=== PATIENT | male | born 1995 | race African-American/Black ===

== ENCOUNTER 2023-09-28 06:03 | Emergency (ER) | payer OTHER, SELFPAY ==
[2023-09-28] VITALS (8 sets, daily range): BP systolic 120–135; BP diastolic 67–77; PULSE 70–80; RESP 15–19; TEMP 36.5; O2SAT 96–98
--- NOTE | ~2023-09-28 | XR_ITS ---
Clinical Indication: Chest pain PA and lateral views of the chest: Comparison: None Findings: The lungs are clear, without evidence of focal consolidation or pleural effusion. Cardiome diastinal silhouette is within normal limits. Bones and soft tissues are unremarkable. Impression: Normal chest. Reviewed, dictated and finalized at location . [employer] Impression: Normal chest.
[2023-09-28 06:41] LABS: Basophils Percent Auto 0.4 % (0.2-1.2); Eosinophils Absolute Auto 0.1 K/mm3 (0-0.3); Eosinophils Percent Auto 1.5 % (0-4.4); Hemoglobin 7.9 g/dL (14.0-18.0); Immature Granulocyte Absolute 0.43 K/mm3 (0.00-0.031); Immature Granulocyte Percent A 4.5 % (0-0.5); Lymphocytes Absolute Auto 4.16 K/mm3 (0.9-3.2); Lymphocytes Percent Auto 43.8 % (18.3-44.2); Mean Corpuscular HGB Conc 35.9 g/dl (32-36); Mean Corpuscular Hemoglobin 41.4 pg (26-34); Mean Corpuscular Volume 115.2 fl (80-100); Monocytes Absolute Auto 0.7 K/mm3 (0.1-0.6); Monocytes Percent Auto 7.6 % (2.6-8.5); Neutrophils Percent Auto 42.2 % (45.5-73.1); Nucleated Red Blood Cells Absolute Auto 1.6 K/mm3 (0.0-0.012); Nucleated Red Blood Cells Perc 17.3 % (0.0-0.2); Platelet Count Result 658 k/mm3 (150-375); Red Blood Count 1.91 M/mm3 (4.6-6.20); Red Cell Distribution Width 19.6 % (11.5-14.5); White Blood Count 9.5 K/mm3 (4.5-10.0)
[2023-09-28 06:55] LABS: Alanine Aminotransferase 32 U/L (6-50); Albumin Level 3.8 g/dL (3.5-5.1); Alkaline Phosphatase 86 U/L (38-126); Anion Gap 6 mmol/L (8-16); Aspartate Amino Transferase 55 U/L (17-59); Bilirubin,Total 5.7 mg/dL (0.2-1.3); Blood Urea Nitrogen 5 mg/dL (9-20); Carbon Dioxide 22 mmol/L (22-30); Chloride 104 mmol/L (98-107); Estimated CRCL calculation 129 ml/min; Estimated Glomerular Filt Rate > 60; Glucose 115 mg/dL (65-110); Potassium 3.6 mmol/L (3.4-5.0); Sodium 132 mmol/L (137-145)
--- NOTE | 2023-09-28 06:58 | ED.GENADULT ---
HPI - General Adult General Chief complaint: Unspecified Stated complaint: sickle cell crisis Time Seen by Provider: 09/28/23 06:54 History of Present Illness HPI narrative: Patient is a 27-year-old male with history of sickle cell disease here with chest pain, concerning for sickle cell crisis. He states that last night around 10-11 PM his pain significantly worsened. It is located on his left chest wall and is nonradiating. He states that it feels very similar to prior episodes of pain crises. He states that his pain crises typically occur in his chest, he has been monitored for acute chest syndrome in the past however never had it. He denies any cough, congestion, fever, chills. No known sick contacts. He follows at [facility] with their hematology program and is on hydroxyurea. He typically is able to avoid presenting to the hospital and has never been admitted to the hospital for pain crises in the past. He typically takes ibuprofen at home and oxycodone for breakthrough pain. He is scheduled for a hematology appointment this upcoming Tuesday however ran out of his pain medication recently while he was waiting for his upcoming appointment. He tends to get some constant mild pain each day but has what he describes as a pain crises with seasonal changes about every 6 months. No additional focal pain aside from his chest. Related Data Allergies Allergy/AdvReac Type Severity Reaction Status Date / Time No Known Allergies Allergy Verified 09/28/23 07:41 Review of Systems Review of Systems: All systems reviewed & are unremarkable except as noted in HPI and below Exam Narrative: GENERAL: Well-appearing, well-nourished, and in no acute distress. HEAD: Normocephalic, atraumatic. EYES: PERRLA and EOMI. ENT: Nares clear. Mucous membranes moist. NECK: Supple. CHEST: Clear to auscultation. No respiratory distress. HEART: Regular rate and rhythm. Normal peripheral pulses. ABDOMEN: Soft, nontender, nondistended. EXTREMITIES: Normal range of motion. No edema. SKIN: Warm, dry, no rash. NEURO: No focal deficits. Alert and oriented x3. PSYCH: Normal mood and affect. Course Course Emergency Course: Chart review performed. Patient reportedly here with sickle cell crisis, reportedly ran out of his home pain medication. Triage vitals normal. No prior visits in our system. Patient seen evaluated, nontoxic appearing. He appears to be in some pain on evaluation, consistent with sickle cell crisis. Will do chest x-ray to evaluate for any evidence of pneumonia however acute chest is lower on my differential given the fact that he typically has chest pain with his sickle cell crises and has no infectious symptoms. Will do reticulocyte count in addition to lab work drawn in triage, CXR, EKG and troponin added as well. Less likely ACS. Lab work and imaging reviewed, hemoglobin 7.9, consistent with known sickle cell disease, appropriate reticulocyte count elevation at 0.27. Do not believe I have concern for aplastic crisis at this time. No leukocytosis. Electrolytes grossly within normal limits, total bilirubin elevated, this is also consistent with history of sickle cell disease. Troponin negative. Chest x-ray normal. Patient re-evaluated, feeling much better. 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 He would prefer to do a trial of going home. Will send an short-term prescription for oxycodone for his teradata developer to renew next week. Advised close follow-up with his teradata developer as well as strict return precautions if his symptoms worsen. The results of pertinent diagnostic studies and exam findings were discussed. The patient?s provisional diagnosis and plan of care were discussed with the patient and present family. The patient and/or present family expressed understanding of the diagnosis and plan. The mayte
[2023-09-28 07:14] LABS: Immature Reticulocyte Fraction 45.1 % (3.0-15.9); Reticulocyte Hemoglobin Conten 36.3 pg (28.2-35.7); Reticulocyte Percent 13.87 % (0.7-4.3); Reticulocytes Absolute 0.27 M/mm3 (0.02-0.1)
--- NOTE | 2023-09-28 07:18 | ECG_ITS ---
Measurements Intervals [place] Rate: 74 P: 69 MI: 163 QRS: 34 QRSD: 94 T: 15 QT: 377 QTc: 419 Interpretive Statements SINUS RHYTHM INCOMPLETE RIGHT BUNDLE BRANCH BLOCK NONSPECIFIC T-WAVE ABNORMALITY- INFERIOR LEADS BASELINE ARTIFACT- I, II, III, AVR, AVL, AVF, V5 BORDERLINE ECG NO PREVIOUS ECG AVAILABLE FOR COMPARISON Electronically Signed On 09-28-2023 7:32:12 [employer] by Boyd Taylor D.O.
[2023-09-28 07:30] LABS: Anisocytosis 2+ (NORMAL); Hypochromasia 2+ (NORMAL); Platelet Estimate Increased (Adequate); Poikilocytosis 2+ (NORMAL); Sickle Cells 1+ (NORMAL)
[2023-09-28 07:31] LABS: Macrocytosis 1+ (NORMAL); Schistocytes Rare (NORMAL); Target Cells 1+ (NORMAL)
[2023-09-28 07:37] LABS: Magnesium 1.8 mg/dL (1.6-2.3)
[2023-09-28] MEDS: LACTATED RINGERS 1,000 ML 999 ML IV CONT (07:42)
[2023-09-28] MEDS: ONDANSETRON INJ 4 MG/2 ML VIAL IV PUSH (07:42)
[2023-09-28] MEDS: MORPHINE SULFATE (*CRX) 4 MG/ML INJ IV PUSH (07:42)
[2023-09-28 07:49] LABS: Troponin I < 0.012 ng/mL (0.000-0.034)
== END 2023-09-28 09:00 | disposition home or self-care (01) ==
PROVIDERS: Emergency Medicine; Emergency Provider Student in an Organized Health Care Education/Training Program
DX: D57.00 Hb-SS disease with crisis, unspecified (principal); R07.9 Chest pain, unspecified
CPT/HCPCS: 36415; 71046; 80053; 83735; 84484; 85025; 85046; 93005; 96361; 96374; 96375; 99284; J2270; J2405; J7120